=== PATIENT | male | born 1960 | race Caucasian/White ===

== ENCOUNTER 2023-11-09 13:09 | Day surgery (SDC) | payer MEDICARE ==
[2023-11-09] MEDS ORDERED: Sodium Chloride 0.9(Preservative Free) 10 ML IJ ONE (13:10)
[2023-11-09] MEDS ORDERED: LIDOCAINE HCL 1% 50 MG/5 ML VL PF IJ ONE (13:10)
[2023-11-09] MEDS ORDERED: Depo-Medrol 40 MG/ML IM ONE (13:10)
[2023-11-09] MEDS ORDERED: DIPRIVAN 200 MG/20 ML IV ONE (14:27)
[2023-11-09] MEDS ORDERED: Lactated Ringers 1,000 ML IV ONE (14:30)
--- NOTE | 2023-11-09 16:01 | XRAY ---
Indication: Lumbar DORA. Intraoperative fluoroscopy provided for 11 seconds. 2 digital spot images submitted for interpretation demonstrates needle tip projecting posterior to inferior lumbosacral junction airspace. Small amount of contrast injected for needle tip placement. Correlate with intraoperative findings/report. Incidental incompletely visualized L4 fusion hardware.
--- NOTE | 2023-11-10 07:18 | XRAY ---
11 seconds of fluoroscopy used in surgery for a lumbar DORA.
== END 2023-11-09 14:54 | disposition home or self-care (01) ==
LOC: SDC-PAIN 13:09
PROVIDERS: ATTEND Psychiatry & Neurology Pain Medicine
DX: M54.16 Radiculopathy, lumbar region (principal)
CPT/HCPCS: 62323; 72100; 77003; J1010; J2001; J2704; Q9966